=== PATIENT | male | born 1945 | race Caucasian/White ===

== ENCOUNTER 2018-11-21 16:11 | Inpatient (IN) | payer OTHER ==
[~2018-11-21] VITALS: Ht 172.7 cm; Wt 61.5 kg
[~2018-11-21 16:11] MED LIST: AMOX1TAB10 PO; CLOT30CR24 TOP; DEXA4TAB PO; DIGO125T PO; LACT1CAP57 PO; LANT3I SC; LINA5TAB PO; ONDA4TAB13 PO; PANT40TA4 PO
--- NOTE | 2018-11-21 16:56 | ERD ---
ER Documentation Chief Complaint Chief Complaint BILATERAL LEG SWELLING; DIZZINESS -HISTORY OF DKA;GASTRIC CANCER ; ON CHEMO HPI 73-year-old male with a history of atrial fibrillation, diabetes mellitus, and stomach cancer on chemotherapy presenting with worsening leg swelling over the past few weeks, worse in the past 2 days. He had his chemotherapy administered yesterday. This was the first time in a month that he had chemo. He does endorse some generalized weakness and mild dizziness, but otherwise he states he feels well. He is just concerned about his leg swelling. He denies any pain associated with the leg swelling. He denies any shortness of breath, chest pain, vomiting, diarrhea, or change in urination. He denies a history of heart failure. ROS All systems reviewed and are negative except as per history of present illness. Medications Home Meds Active Scripts Lactobacillus Rhamnosus* (Culturelle*) 1 Each Cap.sprink, 1 CAP PO BID, #10 CAP Prov:JOEY CERVANTES . 11/07/18 Clotrimazole* (Clotrimazole* AF) 1% - 30 Gm Cream.gm., 1 APPLIC TOP BID, #1 TUB 1 Refill Prov:JOEY CERVANTES. 11/07/18 Linagliptin (TRADJENTA) 5 Mg Tablet, 5 MG PO DAILY, #30 TAB 1 Refill Prov:JOEY CERVANTES . 11/07/18 Pantoprazole* (Pantoprazole*) 40 Mg Tablet.dr, 40 MG PO DAILY@06, #30 TAB 1 Refill Prov:JOEY CERVANTES. 11/07/18 Digoxin* (Digitek*) 125 Mcg Tablet, 0.125 MG PO DAILY@13, #30 TAB Prov:JOEY CERVANTES. 11/07/18 Reported Medications Digoxin* (Digitek*) 125 Mcg Tablet, 0.125 MG PO DAILY, TAB 11/21/18 Insulin Glargine* (Lantus*) 100 Unit/Ml Soln, 10 UNIT SC QHS, #1 VIAL 11/21/18 Dexamethasone* (Dexamethasone*) 4 Mg Tablet, 8 MG PO BID PRN for DIRECTED, TAB TAKE 2TAB BID- DAY BEFORE CHEMO, THEN NEXT DAY,THEN DAY OFF. 10/30/18 Ondansetron Hcl* (Zofran*) 4 Mg Tab, 4 MG PO NEEDED PRN for NAUSEA AND OR VOMITING, TAB 10/30/18 Discontinued Scripts Amoxicillin/Potassium Clav (Amox-Clav 875-125 mg Tablet) 875-125 mg Tab, 1 TAB PO BID, #10 TAB Prov:JOEY CERVANTES. 11/07/18 Insulin Glargine* (Lantus*) 100 Unit/Ml Soln, 1 UNIT SC DAILY, #3 VIAL 1 Refill Prov:JOEY CERVANTES. 11/07/18 Allergies Allergies: Coded Allergies: No Known Allergy (Unverified , 11/21/18) PMhx/Soc History of Surgery: Yes (PORTACATH AND STENT IN ABDOMEN ) Anesthesia Reaction: No Hx Neurological Disorder: No Hx Respiratory Disorders: No Hx Cardiac Disorders: Yes (AFib) Hx Psychiatric Problems: Yes (DEPRESSION MORE CURRENTLY) Hx Miscellaneous Medical Probl: Yes (DM, Stomach CA) Hx Alcohol Use: No Hx Substance Use: No Hx Tobacco Use: No FmHx Family History: No coronary disease Physical Exam Vitals Vital Signs Date Temp Pulse Resp B/P (MAP) Pulse Ox O2 O2 Flow FiO2 Time Delivery Rate 11/21/18 74 19 151/99 100 18:17 (116) 11/21/18 97.2 73 19 170/88 100 16:13 (115) Physical Exam Const: No acute distress Head: Atraumatic Eyes: Normal Conjunctiva ENT: Normal External Ears, Nose and Mouth. Dry mucous membranes Neck: Full range of motion. No meningismus.no JVD Resp: Clear to auscultation bilaterally Cardio: Regular rate and rhythm, no murmurs Abd: Soft, non tender, non distended. No palpable masses. Normal bowel sounds Skin: No petechiae or rashes Back: No midline or flank tenderness Ext: No cyanosis, 2+ pitting edema Neur: Awake and alert, normal speech, no facial asymmetry, Normal steady gait. Strength grossly intact. Psych: Normal Mood and Affect Result Diagram: 11/21/18 1706 11/21/18 170 Results 24 hrs Laboratory Tests Test 11/21/18 17:05 11/21/18 17:06 11/21/18 18:35 Bedside Glucose 369 mg/dL 343 mg/dL White Blood Count 7.0 10^3/ul Red Blood Count 3.29 10^6/ul Hemoglobin 8.7 g/dl Hematocrit 27.5 % Mean Corpuscular Volume 83.6 fl Mean Corpuscular Hemoglobin 26.4 pg Mean Corpuscular 31.6 g/dl Hemoglobin Concent Red Cell Distribution Width % Platelet Count 241 10^3/UL Mean Platelet Volume 9.5 fl Immature Granulocytes % 0.400 % Neutrophils % % Segmented Neutrophils % (Manual) 92 % Band Neutrophils % (Manual) 1 % Lymphocytes % % Lymphocytes % (Manual) 7 % Monocytes % % Eosinophils % % Basophils % % Nucleated Red Blood Cells % 0.0 /100WBC Immature Granulocytes # 0.030 10^3/ul Neutrophils # 10^3/ul Neutrophils # (Manual) 6.4 10^3/ul Band Neutrophils # 0.0 10^3/ul Lymphocytes (Manual) 0.4 10^3/ul Lymphocytes # 10^3/ul Monocytes # 10^3/ul Eosinophils # 10^3/ul Basophils # 10^3/ul Nucleated Red Blood Cells # 10^3/ul Platelet Estimate NORMAL Giant Platelets 1 % Polychromasia 1+ Hypochromasia 1+ Anisocytosis 2+ Microcytosis 2+ Urine Color STRAW Urine Clarity CLEAR Urine pH 6.0 Urine Specific [place] 1.016 Urine Ketones NEGATIVE mg/dL Urine Nitrite NEGATIVE mg/dL Urine Bilirubin NEGATIVE mg/dL Urine Urobilinogen NEGATIVE mg/dL Urine Leukocyte Esterase NEGATIVE Dulce/ul Urine Microscopic RBC 1 /HPF Urine Microscopic WBC 0 /HPF Urine Hemoglobin NEGATIVE mg/dL Urine Glucose 3+ mg/dL Urine Total Protein 1+ mg/dl Sodium Level 132 mmol/L Potassium Level 4.5 mmol/L Chloride Level 100 mmol/L Carbon Dioxide Level 23 mmol/L Anion Gap 9 Blood Urea Nitrogen 25 mg/dl Creatinine 0.64 mg/dl Est Glomerular Filtrat mL/min Rate mL/min Glucose Level 330 mg/dl Calcium Level 8.7 mg/dl Total Bilirubin 0.2 mg/dl Direct Bilirubin 0.00 mg/dl Indirect Bilirubin 0.2 mg/dl Aspartate Amino Transf (AST/SGOT) 32 IU/L Alanine 47 IU/L Aminotransferase (ALT/SGPT) Alkaline Phosphatase 178 IU/L B-Type Natriuretic Peptide 2630 PG/ML Total Protein 6.1 g/dl Albumin 3.4 g/dl Globulin 2.70 g/dl Albumin/Globulin Ratio 1.25 Current Medications Medications Dose Sig/Carlee Start Time Status Last (Trade) Ordered Route PRN Stop Time Admin Dose Reason Admin Insulin 8 unit ONCE ONCE 11/21/18 DC Aspart SC 17:30 (Novolog 11/21/18 17:30 Insulin Pen) Insulin 5 unit ONCE ONCE 11/21/18 DC 11/21/18 Aspart SC 18:30 18:38 (Novolog 11/21/18 18:31 Insulin Pen) Ondansetron 4 mg BRIDGE ORDER 11/21/18 HCl (Zofran PRN IV 18:30 Inj) NAUSEA/VOMITI 11/22/18 18:29 NG 650 mg ER BRIDGE 11/21/18 Acetaminophen PRN PO 18:30 (Tylenol .MILD PAIN 11/22/18 18:29 Tab) 1-3 OR TEMP Procedures/MDM EMERGENT LABS AND DIAGNOSTIC STUDIES: Lab Results above were reviewed and interpreted by me. CBC: Chronic anemia. No evidence of infection, leukopenia, thrombocytopenia CMP: Elevated BUN. No evidence of significant electrolyte abnormality, renal failure, acidosis, liver failure, or biliary obstruction. mild hyponatremia, likely secondary to hyperglycemia. BNP: elevated UA: no evidence of infection. New onset proteinuria 12-lead EKG was interpreted by Supa Kaplan MD: Sinus Rhythm with first-degree AV block at 69 bpm Normal axis Normal intervals No acute ST or T wave changes suggestive of acute ischemia or STEMI. Radiology Results as interpreted by Radiology below were reviewed by SDaniel Kaplan MD: CXR: no acute abnormalities Initial Nursing notes reviewed. Previous Medical Records requested via the Electronic Health Record. EMERGENCY DEPARTMENT COURSE / MEDICAL DECISION MAKING: Patient is presenting with worsening peripheral edema with new onset proteinuria. His blood albumin is however normal. He was noted to be hypertensive and remained hypertensive while here. He did not require any treatment in the ED as I do not suspect hypertensive emergency. Patient does not have outpatient nephrology follow-up. I have a concern for possible nephrotic syndrome and feel the patient needs admission for evaluation by roll examiner and further workup of possible nephrotic syndrome. Lasix ordered and administered in ED. Accepting Care Team: Current data and ongoing care discussed. Time: Time of admission Primary Provider: Dr. Olson Outstanding Data: none Departure Diagnosis: Primary Impression: Hypertension Hypertension type: unspecified Qualified Codes: I10 - Essential (primary) hypertension Additional Impressions: Peripheral edema Proteinuria Proteinuria type: unspecified Qualified Codes: R80.9 - Proteinuria, unspecified Condition: Fair ANGIE KAPLAN MD Nov 21, 2018 16:56
[2018-11-21] MEDS ORDERED: INSULIN ASPART [NOVOLOG] 3 ML PEN SC ONE ×2 (17:30→18:30)
[2018-11-21] MEDS ORDERED: ONDANSETRON 4 MG INJ IV PRN (18:30)
[2018-11-21] MEDS ORDERED: ACETAMINOPHEN 325 MG TAB PO PRN ×2 (18:30→20:30)
[2018-11-21] MEDS ORDERED: DIGO125T PO (18:31)
[2018-11-21] MEDS ORDERED: LANT3I SC (18:31)
[2018-11-21] MEDS ORDERED: FUROSEMIDE 40 MG INJ IV ONE (19:00)
[2018-11-21] MEDS ORDERED: NACL 0.9% 3 ML SYG IV SCH (20:30)
[2018-11-21] MEDS ORDERED: morphine 2 MG INJ IV PRN (20:30)
[2018-11-21] MEDS ORDERED: HYDROCODONE/APAP (5/325) TAB PO PRN (20:30)
--- NOTE | 2018-11-21 20:54 | HP ---
Date/Time of Note Date/Time of Note DATE: 11/21/18 TIME: 20:54 Assessment/Plan VTE Prophylaxis Pharmacological prophylaxis: other Lines/Catheters IV Catheter Type (from Nrsg): portacath Assessment/Plan Hospital Course Objective Physical exam General: Patient is laying in bed and answers questions appropriately Mentation: Patient is alert and oriented 4, Head: Normocephalic atraumatic Eyes: EOMI, pupils reactive to light Neck: Supple, nontender, midline Respiratory: Clear to auscultation bilaterally Cardiovascular: regular rate, no obvious murmurs Gastrointestinal: non-tender to palpation, bowel sounds heard. Neurological: Moves all extremities spontaneously Skin: 2+ pitting edema in lower extremity bilaterally Assessment and plan Bilateral lower extremity edema -lasix IV x1 give in ED, will defer to dayteam physician to reassess in the AM for additional need for lasix -UA does show some protein, questionable proteinuria, however labs show normal amounts of protein in his blood, consulted Dr. Rosen, nephrology for possible involvement -Ultrasound lower extremity pending -Echocardiogram done approximately 3 weeks ago shows preserved ejection fraction, will hold off on repeat echocardiogram for now as I do not suspect any change -Possible that this is a side effect of chemotherapy A. fib -Continue digoxin Diabetes mellitus -Hyperglycemic, insulin control while in-house, hold off on p.o. medications as this may be a side effect Gastric carcinoma on chemotherapy -Last dose of chemotherapy was yesterday, patient is on scheduled dexamethasone the day before and day after chemotherapy, will give his night dose today, pat ient does not need to be continued on dexamethasone after today according to the patient. Disposition -Observe in house and effects of Lasix, workup pending for lower extremity edema Result Diagram: 11/21/18 1706 11/21/18 1706 Results 24hrs Laboratory Tests Test 11/21/18 17:05 11/21/18 17:06 11/21/18 18:35 11/21/18 20:32 Bedside Glucose 369 H 343 H 289 H White Blood Count 7.0 # Red Blood Count 3.29 L Hemoglobin 8.7 L Hematocrit 27.5 L Mean Corpuscular 83.6 Volume Mean Corpuscular 26.4 L Hemoglobin Mean Corpuscular 31.6 L Hemoglobin Concent Red Cell Distribution Width Platelet Count 241 Mean Platelet Volume 9.5 Immature 0.400 Granulocytes % Neutrophils % Segmented 92 H Neutrophils % (Manual) Band Neutrophils % 1 (Manual) Lymphocytes % Lymphocytes % 7 L (Manual) Monocytes % Eosinophils % Basophils % Nucleated Red Blood 0.0 Cells % Immature 0.030 Granulocytes # Neutrophils # Neutrophils # 6.4 (Manual) Band Neutrophils # 0.0 Lymphocytes (Manual) 0.4 L Lymphocytes # Monocytes # Eosinophils # Basophils # Nucleated Red Blood Cells # Platelet Estimate NORMAL Giant Platelets 1 H Polychromasia 1+ Hypochromasia 1+ Anisocytosis 2+ Microcytosis 2+ Urine Color STRAW Urine Clarity CLEAR Urine pH 6.0 Urine Specific 1.016 [place] Urine Ketones NEGATIVE Urine Nitrite NEGATIVE Urine Bilirubin NEGATIVE Urine Urobilinogen NEGATIVE Urine Leukocyte NEGATIVE Esterase Urine Microscopic 1 RBC Urine Microscopic 0 WBC Urine Hemoglobin NEGATIVE Urine Glucose 3+ H Urine Total Protein 1+ H Sodium Level 132 L Potassium Level 4.5 Chloride Level 100 Carbon Dioxide Level 23 Anion Gap 9 Blood Urea Nitrogen 25 H Creatinine 0.64 Est Glomerular Filtrat Rate mL/min Glucose Level 330 H Calcium Level 8.7 Total Bilirubin 0.2 Direct Bilirubin 0.00 Indirect Bilirubin 0.2 Aspartate Amino 32 Transf (AST/SGOT) Alanine 47 Aminotransferase (AL T/SGPT) Alkaline Phosphatase 178 H B-Type Natriuretic 2630 H Peptide Total Protein 6.1 Albumin 3.4 Globulin 2.70 Albumin/Globulin 1.25 Ratio HPI/ROS Admit Date/Time Admit Date/Time Hx of Present Illness Patient is a male with a past medical history of atrial fibrillation, diabetes mellitus, gastric carcinoma on chemotherapy who presents to [facility] for 2-day onset of lower extremity swelling. Patient feels well otherwise however is just concerned at this sudden onset swelling in his lower extremity which is caused him some issues with ambulation. Patient states that this has happened before on and off but not to this degree. Patient just received chemotherapy yesterday and is following up with his doctors on a regular basis. Patient denies any chest pain, shortness of breath, nausea, vomiting, headache. PMH/Family/Social Past Medical History Medications Current Medications Ondansetron HCl (Zofran Inj) 4 mg BRIDGE ORDER PRN IV NAUSEA/VOMITING; Start 11/21/18 at 18:30; Stop 11/22/18 at 18:29 Acetaminophen (Tylenol Tab) 650 mg ER BRIDGE PRN PO .MILD PAIN 1-3 OR TEMP; Start 11/21/18 at 18:30; Stop 11/22/18 at 18:29 Coded Allergies: No Known Allergy (Unverified , 11/21/18) Past Surgical History Past Surgical Hx: other Family History Significant Family History: heart disease Social History Smoking Status: Never smoker Exam/Review of Systems Vital Signs Vitals Vital Signs Date Temp Pulse Resp B/P (MAP) Pulse Ox O2 O2 Flow FiO2 Time Delivery Rate 11/21/18 74 19 151/99 100 18:17 (116) 11/21/18 97.2 16:13 KAUSHIK DAWKINS Nov 21, 2018 20:54
[2018-11-21] MEDS ORDERED: DEXAMETHASONE 4 MG TAB PO ONE (21:00)
[2018-11-21] MEDS ORDERED: INSULIN GLARGINE [LANTus] (100 UNITS/ML) SYG SC SCH (21:00)
[2018-11-21] MEDS: PANTOPRAZOLE (EC) 40 MG TAB PO SCH (21:14)
[2018-11-21] MEDS: INSULIN ASPART [NOVOLOG] 3 ML PEN SC SCH (21:31)
[2018-11-21 22:25] VITALS: BP 128/92; PULSE 73; RESP 18
[2018-11-21 23:41] VITALS: Ht 172.7 cm; Wt 61.5 kg
[2018-11-22] MEDS: ACCU-CHEK XX SCH (02:00)
[2018-11-22 02:15] VITALS: BP 110/66; PULSE 95; RESP 18
[2018-11-22] MEDS: INSULIN ASPART [NOVOLOG] 3 ML PEN SC SCH ×7 (02:20→21:58)
[2018-11-22 07:52] VITALS: BP 139/81; PULSE 99; RESP 18
[2018-11-22] MEDS: PANTOPRAZOLE (EC) 40 MG TAB PO SCH ×2 (08:46→21:40)
[2018-11-22] MEDS: DIGOXIN 0.125 MG TAB PO SCH (09:22)
--- NOTE | 2018-11-22 11:02 | CONS ---
DATE OF ADMISSION: 11/21/2018 DATE OF CONSULTATION: 11/22/2018 TYPE OF CONSULTATION: Nephrology. REASON FOR CONSULTATION: Proteinuria, lower extremity edema. PHYSICIAN REQUESTING CONSULT: Dr. Harish Dawkins. HISTORY OF PRESENT ILLNESS: This is a 73-year-old male with a past medical history of afib, diabetes , history of gastric carcinoma on chemotherapy, who presents to [facility] for 2 da ys with lower extremity swelling. The patient has been in his usual state of health until [facility] 2 to 3 days ago when he noted having increasing in lower extremity edema. The patient has been r eceiving chemotherapy most recently 1 day prior to admission. The patient has been on chemotherapy f or 1 month. Upon arrival to the emergency room, the patient had a chest x-ray which showed no eviden ce of infiltrates or failure. The patient had a Doppler lower extremity ultrasound which was negativ e. The patient was admitted to telemetry and was given diuretic therapy and has had excellent urinar y output. The patient himself denies any hemoptysis, hematemesis or hematochezia. In terms of renal history, the patient denies any prior history of kidney disease, acute kidney injur y. Denies any frothy urine. PAST MEDICAL HISTORY: History of gastric carcinoma, history of diabetes, history of atrial fibrillat ion. PAST SURGICAL HISTORY: Status post Port-A-Cath placement and stent placement of stomach. FAMILY HISTORY: No family history of kidney disease. SOCIAL HISTORY: Does not drink, smoke, do drugs. MEDICATIONS: The patient's medications have been reviewed. REVIEW OF SYSTEMS: A 14-point review of systems conducted. Pertinent positives stated in HPI, other beltrán negative. PHYSICAL EXAMINATION: VITAL SIGNS: Blood pressure is 110/66, respiration 18, pulse 95, temperature 99.0. HEENT: Head is normocephalic. NECK: Supple. HEART: Regular rate. LUNGS: Show diminished breath sounds at the base. ABDOMEN: Soft, nontender to palpation. No rebound or guarding. EXTREMITIES: Negative for clubbing, cyanosis. Positive edema bilateral lower extremities. DERMATOLOGIC: No rashes. MUSCULOSKELETAL: No joint effusion. NEUROLOGIC: No focal deficits. LABORATORY DATA: The patient's laboratory data shows sodium 137, potassium 4.0, BUN 25, creatinine 0 .66. Hemoglobin A1c pending glucose 230. White count 7.4, hemoglobin 8.7, platelet count 240. The patient's urinalysis shows +1 proteinuria. IMAGING STUDIES: Reviewed. ASSESSMENT AND PLAN: This is a 73-year-old male who presents with: 1. Volume overload with bilateral lower extremity edema. Etiology is unclear, possibly heart failur e, possible nephrotic syndrome. The patient's urinalysis does show +1 proteinuria. The patient has new onset edema. Would recommend a full evaluation. Plan is to quantify the patient's proteinuria b y checking a protein/creatinine ratio and albumin/creatinine ratio. We will also check a renal ultra sound to evaluate renal parenchyma. Would recommend 2D echo to evaluate ejection fraction. Would co ntinue low dose diuretic therapy. We will monitor renal function and electrolytes closely. 2. Proteinuria. Etiology may be secondary to new onset nephrotic syndrome versus diabetes. Plan is to quantify proteinuria stated above. Will continue to monitor. We will also check a SPEP immunofi xation. 3. Atrial fibrillation. Continue medical management. 4. Diabetes. Continue current insulin regimen. Check hemoglobin A1c. 5. Gastric carcinoma on chemotherapy. Continue current medical management. Consider oncology evalu ation. The patient's last chemotherapy was 1 day prior to admission. 6. Anemia. Monitor hemoglobin and hematocrit levels. 7. Hyponatremia, resolved. Thank you, Dr. Dawkins, for this interesting consult. It will be a pleasure to follow patient with you t myaout the hospital course. Dictated By: ARIANNE HOROWITZ DO NR/NTS Conf#: [id number] DID#: [id number] CC: HARISH DAWKINS MD;*EndCC*
--- NOTE | 2018-11-22 12:46 | PN ---
Date/Time of Note Date/Time of Note DATE: 11/22/18 TIME: 12:43 Assessment/Plan VTE Prophylaxis Risk score (from Ns)>0 risk: 6 SCD applied (from Ns): Yes Pharmacological prophylaxis: heparin Lines/Catheters IV Catheter Type (from Nrs): portacath Urinary Cath still in place: No Assessment/Plan Hospital Course 73 yo male with DMII (h/o DKA), gastric cancer, A Fib who present with b/l LE edema - Unclear etiology of edema. labs for nephrotic syndrome have been sent. Reasonable to check TTE given mild JVD to assess for chemo induced cardiac dysfunction - continue lasix - duplex US is negative DMII: - basal/bolus insulin Gastric cancer: - Further treatment as outpatinet Can be discharged home tomorrow Result Diagram: 11/22/188 11/22/18 0448 Results 24hrs Laboratory Tests Test 11/21/18 17:05 11/21/18 17:06 11/21/18 18:35 11/21/18 20:32 Bedside Glucose 369 H 343 H 289 H White Blood Count 7.0 # Red Blood Count 3.29 L Hemoglobin 8.7 L Hematocrit 27.5 L Mean Corpuscular 83.6 Volume Mean Corpuscular 26.4 L Hemoglobin Mean Corpuscular 31.6 L Hemoglobin Concent Red Cell Distribution Width Platelet Count 241 Mean Platelet Volume 9.5 Immature 0.400 Granulocytes % Neutrophils % Segmented 92 H Neutrophils % (Manual) Band Neutrophils % 1 (Manual) Lymphocytes % Lymphocytes % 7 L (Manual) Monocytes % Eosinophils % Basophils % Nucleated Red Blood 0.0 Cells % Immature 0.030 Granulocytes # Neutrophils # Neutrophils # 6.4 (Manual) Band Neutrophils # 0.0 Lymphocytes (Manual) 0.4 L Lymphocytes # Monocytes # Eosinophils # Basophils # Nucleated Red Blood Cells # Platelet Estimate NORMAL Giant Platelets 1 H Polychromasia 1+ Hypochromasia 1+ Anisocytosis 2+ Microcytosis 2+ Urine Color STRAW Urine Clarity CLEAR Urine pH 6.0 Urine Specific 1.016 [place] Urine Ketones NEGATIVE Urine Nitrite NEGATIVE Urine Bilirubin NEGATIVE Urine Urobilinogen NEGATIVE Urine Leukocyte NEGATIVE Esterase Urine Microscopic 1 RBC Urine Microscopic 0 WBC Urine Hemoglobin NEGATIVE Urine Glucose 3+ H Urine Total Protein 1+ H Sodium Level 132 L Potassium Level 4.5 Chloride Level 100 Carbon Dioxide Level 23 Anion Gap 9 Blood Urea Nitrogen 25 H Creatinine 0.64 Est Glomerular Filtrat Rate mL/min Glucose Level 330 H Calcium Level 8.7 Total Bilirubin 0.2 Direct Bilirubin 0.00 Indirect Bilirubin 0.2 Aspartate Amino 32 Transf (AST/SGOT) Alanine 47 Aminotransferase (AL T/SGPT) Alkaline Phosphatase 178 H B-Type Natriuretic 2630 H Peptide Total Protein 6.1 Albumin 3.4 Globulin 2.70 Albumin/Globulin 1.25 Ratio Test 11/21/18 21:21 11/21/18 21:48 11/22/18 02:00 11/22/18 04:48 Bedside Glucose 255 H 275 H 303 H White Blood Count 7.4 Red Blood Count 3.30 L Hemoglobin 8.7 L Hematocrit 27.1 L Mean Corpuscular 82.1 Volume Mean Corpuscular 26.4 L Hemoglobin Mean Corpuscular 32.1 Hemoglobin Concent Red Cell Distribution Width Platelet Count 240 Mean Platelet Volume 9.9 Immature 0.800 H Granulocytes % Segmented 92 H Neutrophils % (Manual) Band Neutrophils % 1 (Manual) Lymphocytes % 6 L (Manual) Monocytes % (Manual) 1 Nucleated Red Blood 0.0 Cells % Immature 0.060 H Granulocytes # Neutrophils # 6.8 (Manual) Band Neutrophils # 0.0 Lymphocytes (Manual) 0.4 L Monocytes # (Manual) 0.0 L Platelet Estimate NORMAL Polychromasia 3+ Hypochromasia 3+ Poikilocytosis 1+ Anisocytosis 2+ Microcytosis 2+ Sodium Level 137 Potassium Level 4.0 Chloride Level 100 Carbon Dioxide Level 28 Anion Gap 9 Blood Urea Nitrogen 25 H Creatinine 0.66 Est Glomerular Filtrat Rate mL/min Glucose Level 230 #H Calcium Level 8.9 Magnesium Level 1.9 Total Bilirubin 0.2 Direct Bilirubin 0.00 Indirect Bilirubin 0.2 Aspartate Amino 30 Transf (AST/SGOT) Alanine 38 Aminotransferase (AL T/SGPT) Alkaline Phosphatase 145 H Total Protein 6.0 L Albumin 3.3 Globulin 2.70 Albumin/Globulin 1.22 Ratio Test 11/22/18 08:44 11/22/18 09:30 Bedside Glucose 238 H Urine Color STRAW Urine Clarity CLEAR Urine pH 7.0 Urine Specific 1.009 [place] Urine Ketones NEGATIVE Urine Nitrite NEGATIVE Urine Bilirubin NEGATIVE Urine Urobilinogen NEGATIVE Urine Leukocyte NEGATIVE Esterase Urine Hemoglobin NEGATIVE Urine Random 21.93 Creatinine Urine Random Sodium 151 H Urine Glucose 3+ H Urine Total Protein 49.0 H Subjective 24 Hr Interval Summary Free Text/Dictation Seems to have had good response to diuretics Feels well Exam/Review of Systems Exam Vitals Vital Signs Date Temp Pulse Resp B/P (MAP) Pulse Ox O2 O2 Flow FiO2 Time Delivery Rate 11/22/18 98.2 99 18 139/81 100 Room Air 07:52 (100) Intake and Output 11/21/18 11/21/18 11/22/18 1414:59 22:59 06:59 OutputOutput Total 1000 ml BalanceBalance -1000 ml Exam AOx3 Pleasant No distress RRR Mild JVD Clear lungs, breathing comfortably + peripheral edema Results Results 24hrs Laboratory Tests Test 11/21/18 17:05 11/21/18 17:06 11/21/18 18:35 11/21/18 20:32 Bedside Glucose 369 H 343 H 289 H White Blood Count 7.0 # Red Blood Count 3.29 L Hemoglobin 8.7 L Hematocrit 27.5 L Mean Corpuscular 83.6 Volume Mean Corpuscular 26.4 L Hemoglobin Mean Corpuscular 31.6 L Hemoglobin Concent Red Cell Distribution Width Platelet Count 241 Mean Platelet Volume 9.5 Immature 0.400 Granulocytes % Neutrophils % Segmented 92 H Neutrophils % (Manual) Band Neutrophils % 1 (Manual) Lymphocytes % Lymphocytes % 7 L (Manual) Monocytes % Eosinophils % Basophils % Nucleated Red Blood 0.0 Cells % Immature 0.030 Granulocytes # Neutrophils # Neutrophils # 6.4 (Manual) Band Neutrophils # 0.0 Lymphocytes (Manual) 0.4 L Lymphocytes # Monocytes # Eosinophils # Basophils # Nucleated Red Blood Cells # Platelet Estimate NORMAL Giant Platelets 1 H Polychromasia 1+ Hypochromasia 1+ Anisocytosis 2+ Microcytosis 2+ Urine Color STRAW Urine Clarity CLEAR Urine pH 6.0 Urine Specific 1.016 [place] Urine Ketones NEGATIVE Urine Nitrite NEGATIVE Urine Bilirubin NEGATIVE Urine Urobilinogen NEGATIVE Urine Leukocyte NEGATIVE Esterase Urine Microscopic 1 RBC Urine Microscopic 0 WBC Urine Hemoglobin NEGATIVE Urine Glucose 3+ H Urine Total Protein 1+ H Sodium Level 132 L Potassium Level 4.5 Chloride Level 100 Carbon Dioxide Level 23 Anion Gap 9 Blood Urea Nitrogen 25 H Creatinine 0.64 Est Glomerular Filtrat Rate mL/min Glucose Level 330 H Calcium Level 8.7 Total Bilirubin 0.2 Direct Bilirubin 0.00 Indirect Bilirubin 0.2 Aspartate Amino 32 Transf (AST/SGOT) Alanine 47 Aminotransferase (AL T/SGPT) Alkaline Phosphatase 178 H B-Type Natriuretic 2630 H Peptide Total Protein 6.1 Albumin 3.4 Globulin 2.70 Albumin/Globulin 1.25 Ratio Test 11/21/18 21:21 11/21/18 21:48 11/22/18 02:00 11/22/18 04:48 Bedside Glucose 255 H 275 H 303 H White Blood Count 7.4 Red Blood Count 3.30 L Hemoglobin 8.7 L Hematocrit 27.1 L Mean Corpuscular 82.1 Volume Mean Corpuscular 26.4 L Hemoglobin Mean Corpuscular 32.1 Hemoglobin Concent Red Cell Distribution Width Platelet Count 240 Mean Platelet Volume 9.9 Immature 0.800 H Granulocytes % Segmented 92 H Neutrophils % (Manual) Band Neutrophils % 1 (Manual) Lymphocytes % 6 L (Manual) Monocytes % (Manual) 1 Nucleated Red Blood 0.0 Cells % Immature 0.060 H Granulocytes # Neutrophils # 6.8 (Manual) Band Neutrophils # 0.0 Lymphocytes (Manual) 0.4 L Monocytes # (Manual) 0.0 L Platelet Estimate NORMAL Polychromasia 3+ Hypochromasia 3+ Poikilocytosis 1+ Anisocytosis 2+ Microcytosis 2+ Sodium Level 137 Potassium Level 4.0 Chloride Level 100 Carbon Dioxide Level 28 Anion Gap 9 Blood Urea Nitrogen 25 H Creatinine 0.66 Est Glomerular Filtrat Rate mL/min Glucose Level 230 #H Calcium Level 8.9 Magnesium Level 1.9 Total Bilirubin 0.2 Direct Bilirubin 0.00 Indirect Bilirubin 0.2 Aspartate Amino 30 Transf (AST/SGOT) Alanine 38 Aminotransferase (AL T/SGPT) Alkaline Phosphatase 145 H Total Protein 6.0 L Albumin 3.3 Globulin 2.70 Albumin/Globulin 1.22 Ratio Test 11/22/18 08:44 11/22/18 09:30 Bedside Glucose 238 H Urine Color STRAW Urine Clarity CLEAR Urine pH 7.0 Urine Specific 1.009 [place] Urine Ketones NEGATIVE Urine Nitrite NEGATIVE Urine Bilirubin NEGATIVE Urine Urobilinogen NEGATIVE Urine Leukocyte NEGATIVE Esterase Urine Hemoglobin NEGATIVE Urine Random 21.93 Creatinine Urine Random Sodium 151 H Urine Glucose 3+ H Urine Total Protein 49.0 H Medications Medication Current Medications IV Flush (NS 3 ml) 3 ml PER PROTOCOL IV ; Start 11/21/18 at 20:30 Ondansetron HCl (Zofran Inj) 4 mg Q6H PRN IV NAUSEA/VOMITING; Start 11/21/18 at 20:30 Acetaminophen (Tylenol Tab) 650 mg Q6H PRN PO .PAIN 1-3 OR TEMP; Start 11/21/18 at 20:30 Acetaminophen/ Hydrocodone Bitart ([place] (5/325)) 1 tab Q6H PRN PO .PAIN 4-6; Start 11/21/18 at 20:30 Morphine Sulfate (morphine) 2 mg Q4H PRN IV .PAIN 7-10; Start 11/21/18 at 20:30 Pantoprazole (Protonix Tab) 40 mg BID PO Last administered on 11/22/18 08:46; Admin Dose 40 MG; Start 11/21/18 at 21:00 Digoxin (Digoxin) 0.125 mg DAILY PO Last administered on 11/22/18 09:22; Admin Dose 0.125 MG; Start 11/22/18 at 09:00 Insulin Glargine (Lantus) 10 units QHS SC Last administered on 11/21/18 21:30; Admin Dose 10 UNITS; Start 11/21/18 at 21:00 Diagnostic Test (Pha) (Accu-Chek) 1 ea 02 XX ; Start 11/22/18 at 02:00 Insulin Aspart (Novolog Insulin Pen) NOVOLOG *MILD* ALGORITHM WITH MEALS BEDTIME SC Last administered on 11/22/18 09:24; Admin Dose 3 UNIT; Start 11/21/18 at 21:00 MAVIS MATOS MD Nov 22, 2018 12:46
[2018-11-22] MEDS ORDERED: DEXTROSE 50% 50 ML SYRINGE IV PRN ×2 (13:30)
[2018-11-22] MEDS ORDERED: GLUCAGON 1 MG INJ IM PRN (13:30)
[2018-11-22] MEDS ORDERED: GLUCOSE GEL 15 GRAM TUBE BUCCAL PRN (13:30)
[2018-11-22] MEDS ORDERED: GLUCOSE GEL 15 GRAM TUBE PO PRN ×2 (13:30)
[2018-11-22 15:23] VITALS: BP 131/81; PULSE 78; RESP 18
[2018-11-22] MEDS ORDERED: INSULIN ASPART [NOVOLOG] 3 ML PEN SC SCH ×2 (17:55)
[2018-11-22 19:15] VITALS: BP 121/74; PULSE 78; RESP 18
[2018-11-22] MEDS ORDERED: INSULIN GLARGINE [LANTus] (100 UNITS/ML) SYG SC SCH (21:00)
[2018-11-23 02:00] VITALS: BP 134/76; PULSE 84; RESP 18
[2018-11-23] MEDS: ACCU-CHEK XX SCH ×2 (02:00→20:54)
[2018-11-23] MEDS: INSULIN ASPART [NOVOLOG] 3 ML PEN SC SCH ×7 (07:50→20:53)
[2018-11-23] MEDS: PANTOPRAZOLE (EC) 40 MG TAB PO SCH ×2 (08:15→20:17)
[2018-11-23] MEDS: DIGOXIN 0.125 MG TAB PO SCH (08:17)
[2018-11-23 08:20] VITALS: BP 101/66; PULSE 67; RESP 18
[2018-11-23] MEDS ORDERED: LISINOPRIL 5 MG TAB PO SCH (09:00)
[2018-11-23] MEDS: ONDANSETRON 4 MG INJ IV PRN (11:07)
--- NOTE | 2018-11-23 14:06 | PN ---
Date/Time of Note Date/Time of Note DATE: 11/23/18 TIME: 14:05 Assessment/Plan VTE Prophylaxis Risk score (from [facility])>0 risk: 6 SCD applied (from [facility]): Yes Pharmacological prophylaxis: heparin Lines/Catheters IV C[facility]ter Type (from [facility] PORT-A-CATH Urinary Cath still in place: No Assessment/Plan Problems: (1) Peripheral edema Status: Acute Comment: As noted and relatively mild. (2) Proteinuria Status: Acute Comment: Again this is relatively mild but renal is working this up aggressively Qualifiers: Proteinuria type: unspecified Qualified Codes: R80.9 - Proteinuria, unspecified Result Diagram: 11/22/188 11/23/18442 Results 24hrs Laboratory Tests Test 11/22/18 17:37 11/22/18 21:38 11/23/18 02:38 11/23/18 04:43 Bedside Glucose 297 H 184 142 Sodium Level 136 Potassium Level 4.1 Chloride Level 98 Carbon Dioxide Level 30 Anion Gap 8 Blood Urea Nitrogen 24 H Creatinine 0.71 Est Glomerular Filtrat Rate mL/min Glucose Level 141 # Calcium Level 9.1 Phosphorus Level 3.4 Magnesium Level 2.0 Test 11/23/18 08:14 11/23/18 12:26 11/23/18 12:44 11/23/18 13:05 Bedside Glucose 106 68 L 66 L 76 Test 11/23/18 13:28 Bedside Glucose 67 L Subjective 24 Hr Interval Summary Free Text/Dictation Patient reports he was brought into the hospital for more chemotherapy although I think that that is not actually fully accurate. Has had some low sugars today Constitutional: no complaints Respiratory: no complaints Cardiovascular: edema Gastrointestinal: no complaints Exam/Review of Systems Exam Vitals Vital Signs Date Temp Pulse Resp B/P (MAP) Pulse Ox O2 O2 Flow FiO2 Time Delivery Rate 11/23/18 97.5 67 18 101/66 98 Room Air 08:20 (78) Intake and Output 11/22/18 11/22/18 11/23/18 1515:00 23:00 07:00 IntakeIntake Total 800 ml 400 ml 550 ml OutputOutput Total 600 ml 450 ml BalanceBalance 200 ml 400 ml 100 ml Constitutional: alert, oriented Respiratory: clear to auscultation, normal air movement Cardiovascular: regular rate and rhythm, nl pulses Gastrointestinal: soft, nl liver, spleen, non-tender Results Results 24hrs Laboratory Tests Test 11/22/18 17:37 11/22/18 21:38 11/23/18 02:38 11/23/18 04:43 Bedside Glucose 297 H 184 142 Sodium Level 136 Potassium Level 4.1 Chloride Level 98 Carbon Dioxide Level 30 Anion Gap 8 Blood Urea Nitrogen 24 H Creatinine 0.71 Est Glomerular Filtrat Rate mL/min Glucose Level 141 # Calcium Level 9.1 Phosphorus Level 3.4 Magnesium Level 2.0 Test 11/23/18 08:14 11/23/18 12:26 11/23/18 12:44 11/23/18 13:05 Bedside Glucose 106 68 L 66 L 76 Test 11/23/18 13:28 Bedside Glucose 67 L Medications Medication Current Medications IV Flush (NS 3 ml) 3 ml PER PROTOCOL IV ; Start 11/21/18 at 20:30 Ondansetron HCl (Zofran Inj) 4 mg Q6H PRN IV NAUSEA/VOMITING Last administered on 11/23/18at 11:07; Admin Dose 4 MG; Start 11/21/18 at 20:30 Acetaminophen (Tylenol Tab) 650 mg Q6H PRN PO .PAIN 1-3 OR TEMP; Start 11/21/18 at 20:30 Acetaminophen/ Hydrocodone Bitart ([place] (5/325)) 1 tab Q6H PRN PO .PAIN 4-6; Start 11/21/18 at 20:30 Morphine Sulfate (morphine) 2 mg Q4H PRN IV .PAIN 7-10; Start 11/21/18 at 20:30 Pantoprazole (Protonix Tab) 40 mg BID PO Last administered on 11/23/18at 08:15; Admin Dose 40 MG; Start 11/21/18 at 21:00 Digoxin (Digoxin) 0.125 mg DAILY PO Last administered on 11/23/18at 08:17; Admin Dose 0.125 MG; Start 11/22/18 at 09:00 Diagnostic Test (Pha) (Accu-Chek) 1 ea 02 XX ; Start 11/22/18 at 02:00 Insulin Aspart (Novolog Insulin Pen) NOVOLOG *MILD* ALGORITHM WITH MEALS BEDTIME SC Last administered on 11/22/18at 21:58; Admin Dose 1 UNIT; Start 11/21/18 at 21:00 Insulin Glargine (Lantus) 15 units QHS SC Last administered on 11/22/18at 21:58; Admin Dose 15 UNITS; Start 11/22/18 at 21:00 Miscellaneous Information 1 ea NOTE XX ; Start 11/22/18 at 13:30 Glucose (Glutose) 15 gm Q15M PRN PO DECREASED GLUCOSE; Start 11/22/18 at 13:30 Glucose (Glutose) 22.5 gm Q15M PRN PO DECREASED GLUCOSE; Start 11/22/18 at 13:30 Dextrose (D50w Syringe) 25 ml Q15M PRN IV DECREASED GLUCOSE; Start 11/22/18 at 13:30 Dextrose (D50w Syringe) 50 ml Q15M PRN IV DECREASED GLUCOSE; Start 11/22/18 at 13:30 Glucagon (Glucagen) 1 mg Q15M PRN IM DECREASED GLUCOSE; Start 11/22/18 at 13:30 Glucose (Glutose) 15 gm Q15M PRN BUCCAL DECREASED GLUCOSE Last administered on 11/23/18at 13:33; Admin Dose 15 GM; Start 11/22/18 at 13:30 Insulin Aspart (Novolog Insulin Pen) 3 unit WITH MEALS SC Last administered on 11/23/18at 12:45; Admin Dose 3 UNIT; Start 11/22/18 at 13:30 Lisinopril (Zestril) 5 mg DAILY PO ; Start 11/23/18 at 09:00 JOVAN SWANSON MD Nov 23, 2018 14:06
--- NOTE | 2018-11-23 14:48 | PN ---
DATE: 11/23/2018 SUBJECTIVE: The patient is stable. No events overnight. No fevers, chills, nausea, vomiting. OBJECTIVE: VITAL SIGNS: Blood pressure is 134/76, respiration 18, pulse 84, temperature 98.8. HEENT: Head is normocephalic. NECK: Supple. HEART: Regular rate. LUNGS: Show diminished breath sounds at the base. ABDOMEN: Soft, nontender to palpation. No rebound or guarding. EXTREMITIES: Negative for clubbing, cyanosis. Trace edema. DERMATOLOGIC: No rashes. MUSCULOSKELETAL: No joint effusion. NEUROLOGIC: No change in exam. MEDICATIONS: The patient's medications have been reviewed. LABORATORY DATA: Showed a sodium 136, BUN 24, creatinine 0.71. Urinalysis shows a protein creatinin e ratio approximately 2.3 grams per gram of creatinine. Microalbumin creatinine ratio is pending. W zara count was 7.4, hemoglobin 8.7, platelet count is 240. IMAGING: Renal ultrasound was reviewed. No obstruction. Enlarged prostate with noted. ASSESSMENT AND PLAN: 1. Proteinuria. Etiology is likely due to underlying diabetic nephropathy. Other possibilities suc h as a monoclonal gammopathy need to be evaluated. The patient has non-nephrotic range proteinuria o f approximately 2.3 g per gram of protein. No evidence of nephrotic syndrome as the patient has norm al albumin. Recommendation at this point, is to follow up SPEP, UPEP immunofixation. Would start th e patient on RUDDY inhibitor or ARB upon discharge, and will continue to monitor renal function closely . 2. Volume overload with bilateral lower extremity edema. Etiology is unclear. The patient does not have nephrotic syndrome based on initial protein creatinine ratio. Would do further evaluation by ashley francois a 2D echo to see if there is a component of cardiomyopathy. Continue low-dose diuretic thera py. Will monitor closely. 3. Atrial fibrillation. Continue medical management. 4. Diabetes. Continue current insulin regimen. 5. Gastric cancer, on chemotherapy. Continue current medical management. Follow up with oncology. 6. Anemia. Monitor hemoglobin and hematocrit levels. 7. Hypernatremia, resolved. Dictated By: ARIANNE ROSAS/NTS Conf#: [id number] DID#: [id number]
[2018-11-23 17:46] VITALS: BP 91/62; PULSE 81; RESP 18
[2018-11-23 19:05] VITALS: BP 106/59; PULSE 79; RESP 18
[2018-11-23] MEDS: INSULIN GLARGINE [LANTus] (100 UNITS/ML) SYG SC SCH (20:22)
[2018-11-24 02:05] VITALS: BP 87/58; PULSE 82; RESP 20
[2018-11-24] MEDS: INSULIN ASPART [NOVOLOG] 3 ML PEN SC SCH ×7 (07:50→21:00)
[2018-11-24] MEDS: DIGOXIN 0.125 MG TAB PO SCH (08:28)
[2018-11-24] MEDS: PANTOPRAZOLE (EC) 40 MG TAB PO SCH ×2 (08:28→20:30)
[2018-11-24] MEDS: LISINOPRIL 5 MG TAB PO SCH (08:29)
[2018-11-24 08:31] VITALS: BP 107/72; PULSE 90; RESP 20
--- NOTE | 2018-11-24 11:10 | PN ---
DATE: 11/24/2018 SUBJECTIVE: The patient is stable, no events overnight. No fevers, chills, nausea, vomiting. OBJECTIVE: VITAL SIGNS: Blood pressure is 87.58, respiratory rate 20, pulse 82, temperature 98.3. HEENT: Head is normocephalic. NECK: Supple. HEART: Regular rate. LUNGS: Show diminished breath sounds at the base. ABDOMEN: Soft, nontender to palpation without rebound or guarding. EXTREMITIES: Negative for clubbing, cyanosis. Trace edema. DERMATOLOGIC: No rashes. MUSCULOSKELETAL: No joint effusion. NEUROLOGIC: No change in exam. MEDICATIONS: Reviewed. LABORATORY DATA: Has been reviewed. BMP for this morning is currently pending. ASSESSMENT AND PLAN: 1. Proteinuria. Etiology likely due to diabetic nephropathy. Other possibilities such as monoclona l gammopathy being evaluated. The patient's SPEP, UPEP are currently pending. The patient was start ed on low dose RUDDY inhibitor. Will monitor blood pressure closely. We will place parameters on RUDDY inhibitor. We will follow up renal panel. Otherwise, continue current treatment plan, supportive ca re, renally dose all meds. 2. Volume overload secondary to bilateral lower extremity edema, etiology is unclear. Would consider checking a 2D echo. The patient is on low dose diuretic therapy, monitor closely. 3. Atrial fibrillation. Continue medical management. 4. Diabetes. Continue current insulin regimen. 5. Gastric cancer and chemotherapy. Continue current treatment plan. Follow up with oncology. 6. Anemia. Monitor hemoglobin and hematocrit levels. 7. Hypernatremia, resolved. Dictated By: ARIANNE HOROWITZ DO NR/NTS Conf#: [id number] DID#: [id number] CC: DAYANARA HAWTHORNE MD; KAUSHIK DAWKINS MD;*EndCC*
--- NOTE | 2018-11-24 11:22 | DS ---
Date/Time of Note Date/Time of Note DATE: 11/24/18 TIME: 11:17 Discharge Summary Admission/Discharge Info Admit Date/Time Nov 21, 2018 at 18:28 Discharge Date/Time November 24, 2018 Discharge Diagnosis Bilateral lower extremity edema; proteinuria; diabetes mellitus type 2; ventral hypertension; metastatic gastric carcinoma; nontoxic single thyroid nodule Patient Condition: Fair Consults Nephrology-Dr. Rosen Procedures No ultrasound; lower extremity venous Doppler study; Hx of Present Illness HPI 73-year-old male with a history of atrial fibrillation, diabetes mellitus, and stomach cancer on chemotherapy presenting with worsening leg swelling over the past few weeks, worse in the past 2 days. He had his chemotherapy administered yesterday. This was the first time in a month that he had chemo. He does endorse some generalized weakness and mild dizziness, but otherwise he states he feels well. He is just concerned about his leg swelling. He denies any pain associated with the leg swelling. He denies any shortness of breath, chest pain, vomiting, diarrhea, or change in urination. He denies a history of heart f Hx of Present Illness Patient is a male with a past medical history of atrial fibrillation, diabetes mellitus, gastric carcinoma on chemotherapy who presents to [facility] for 2-day onset of lower extremity swelling. Patient feels well otherwise however is just concerned at this sudden onset swelling in his lower extremity which is caused him some issues with ambulation. Patient states that this has happened before on and off but not to this degree. Patient just received chemotherapy yesterday and is following up with his doctors on a regular basis. Patient denies any chest pain, shortness of breath, nausea, vomiting, headache. Hospital Course Pleasant gentleman with known metastatic gastric cancer came in with bilateral lower extremity edema and some degree of proteinuria. While the electrophoresis is pending his total protein loss was not excessive and was not in the nephrotic range. He has improved with careful management and is stable for discharge. Home Meds Active Scripts Lactobacillus Rhamnosus* (Culturelle*) 1 Each Cap.sprink, 1 CAP PO BID, #10 CAP Prov:JOEY CERVANTES 11/07/18 Clotrimazole* (Clotrimazole* AF) 1% - 30 Gm Cream.gm., 1 APPLIC TOP BID, #1 TUB 1 Refill Prov:JOEY CERVANTES 11/07/18 Linagliptin (TRADJENTA) 5 Mg Tablet, 5 MG PO DAILY, #30 TAB 1 Refill Prov:JOEY CERVANTES. 11/07/18 Pantoprazole* (Pantoprazole*) 40 Mg Tablet.dr, 40 MG PO DAILY@06, #30 TAB 1 Refill Prov:JOEY CERVANTES. 11/07/18 Digoxin* (Digitek*) 125 Mcg Tablet, 0.125 MG PO DAILY@13, #30 TAB Prov:JOEY CERVANTES. 11/07/18 Reported Medications Digoxin* (Digitek*) 125 Mcg Tablet, 0.125 MG PO DAILY, TAB 11/21/18 Insulin Glargine* (Lantus*) 100 Unit/Ml Soln, 10 UNIT SC QHS, #1 VIAL 11/21/18 Dexamethasone* (Dexamethasone*) 4 Mg Tablet, 8 MG PO BID PRN for DIRECTED, TAB TAKE 2TAB BID- DAY BEFORE CHEMO, THEN NEXT DAY,THEN DAY OFF. 10/30/18 Ondansetron Hcl* (Zofran*) 4 Mg Tab, 4 MG PO NEEDED PRN for NAUSEA AND OR VOMITING, TAB 10/30/18 Discontinued Scripts Amoxicillin/Potassium Clav (Amox-Clav 875-125 mg Tablet) 875-125 mg Tab, 1 TAB PO BID, #10 TAB Prov:JOEY CERVANTES. 11/07/18 Insulin Glargine* (Lantus*) 100 Unit/Ml Soln, 1 UNIT SC DAILY, #3 VIAL 1 Refill Prov:JOEY CERVANTES. 11/07/18 Follow-up Plan Dr. Rosen in 2 weeks; primary care physician 2 weeks; Dr. Charis Russell in 2 weeks Primary Care Provider Not On Staff Doctor Time spent on discharge: > 30 minutes Pending Labs Laboratory Tests Test 11/23/18 12:26 11/23/18 12:44 11/23/18 13:05 11/23/18 13:28 Bedside 68 66 76 67 Glucose mg/dL (70-220) mg/dL (70-220) mg/dL (70-220) mg/dL (70-220) Test 11/23/18 13:51 11/23/18 14:14 11/23/18 14:38 11/23/18 14:55 Bedside 68 71 168 184 Glucose mg/dL (70-220) mg/dL (70-220) mg/dL (70-220) mg/dL (70-220) Test 11/23/18 17:53 11/23/18 20:12 11/24/18 07:52 11/24/18 08:11 Bedside 140 87 65 Glucose mg/dL (70-220) mg/dL (70-220) mg/dL (70-220) Sodium Level 135 mmol/L (135-14 4) Potassium 3.6 Level mmol/L (3.5-5. 1) Chloride Level 100 mmol/L (97-110 ) Carbon Dioxide 31 Level mmol/L (21-31) Anion Gap 4 (5-13) Blood Urea 23 Nitrogen mg/dl (7-20) Creatinine 0.63 mg/dl (0.61-1. 24) Est Glomerular mL/min (>60) Filtrat Rate mL/min Glucose Level 64 mg/dl (70-220) Calcium Level 8.5 mg/dl (8.4-10. 2) Test 11/24/18 08:30 11/24/18 08:55 Bedside 81 95 Glucose mg/dL (70-220) mg/dL (70-220) JOVAN SWANSON MD Nov 24, 2018 11:22
[2018-11-24] MEDS: ONDANSETRON 4 MG INJ IV PRN (12:40)
[2018-11-24] MEDS: INSULIN GLARGINE [LANTus] (100 UNITS/ML) SYG SC SCH (20:35)
[2018-11-24 20:39] VITALS: BP 104/55; PULSE 83; RESP 18
[2018-11-25] MEDS: ACCU-CHEK XX SCH (02:00)
[2018-11-25 02:51] VITALS: BP 100/57; PULSE 76; RESP 18
[2018-11-25 07:42] VITALS: BP 108/64; PULSE 85; RESP 17
[2018-11-25] MEDS: INSULIN ASPART [NOVOLOG] 3 ML PEN SC SCH ×4 (07:50→12:32)
--- NOTE | 2018-11-25 08:53 | PN ---
DATE: 11/25/2018 SUBJECTIVE: The patient is stable, no acute events noted overnight. No fevers, chills, nausea, or v omiting. No other events noted. OBJECTIVE: VITAL SIGNS: Blood pressure is 100/57, respirations 18, pulse 76, temperature 98.8. HEENT: Head is normocephalic. NECK: Supple. HEART: Regular rate. LUNGS: Show diminished breath sounds at the base. ABDOMEN: Soft, nontender to palpation. No rebound or guarding. EXTREMITIES: Negative for clubbing, cyanosis. Trace edema. DERMATOLOGIC: No rashes. MUSCULOSKELETAL: No joint effusion. NEUROLOGIC: No change in exam. MEDICATIONS: Reviewed. LABORATORY DATA: Reviewed. ASSESSMENT AND PLAN: 1. Proteinuria. Etiology is likely due to diabetic nephropathy. Other possibility such as a monocl onal gammopathy is being evaluated. SPEP, UPEP have been sent out. The patient is currently on low dose RUDDY inhibitor. We will continue to monitor and follow up renal panel. 2. Volume overload secondary to bilateral lower extremity edema improved with diuretic therapy. Kamala ology is unclear. Consider checking 2D echo and monitor closely. 3. Atrial fibrillation. Continue medical management. 4. Diabetes. Continue current insulin regimen. 5. Gastric cancer. The patient is on chemotherapy. We will continue. Follow up with oncology. 6. Anemia. Continue to monitor hemoglobin and hematocrit levels. 7. Hypernatremia, resolved. Dictated By: ARIANNE HOROWITZ DO NR/NTS Conf#: [id number] DID#: [id number] CC: KAUSHIK DAWKINS MD; DAYANARA HAWTHORNE MD;*EndCC*
[2018-11-25] MEDS: PANTOPRAZOLE (EC) 40 MG TAB PO SCH (08:57)
[2018-11-25] MEDS: DIGOXIN 0.125 MG TAB PO SCH (08:57)
[2018-11-25] MEDS: LISINOPRIL 5 MG TAB PO SCH (09:00)
[2018-11-25] MEDS ORDERED: FURO20TA3 PO (11:31)
--- NOTE | 2018-11-25 11:33 | PDOCDIS ---
Discharge Instructions DIAGNOSIS Discharge Diagnosis Bilateral lower extremity edema; proteinuria; diabetes mellitus type 2; ventral hypertension; metastatic gastric carcinoma; nontoxic single thyroid nodule CONDITION [id number] Patient Condition: [id number] Stable HOME CARE INSTRUCTIONS: [id number] Diet Instructions: [id number] Reduced Calorie ACTIVITY: [id number] Activity Restrictions: [id number] Slowly Increase Activity Rest between Activity Avoid heavy lifting FOLLOW UP/APPOINTMENTS Follow-up Plan Dr. Rosen in 2 weeks. His office number is primary care physician 2 weeks; Dr. Charis Russell in 2 weeks MAVIS MATOS MD Nov 25, 2018 11:33
--- NOTE | 2018-11-25 11:34 | DS ---
Date/Time of Note Date/Time of Note DATE: 11/25/18 TIME: 11:33 Discharge Summary Admission/Discharge Info Admit Date/Time Nov 21, 2018 at 18:28 Discharge Date/Time Discharge Diagnosis Bilateral lower extremity edema; proteinuria; diabetes mellitus type 2; ventral hypertension; metastatic gastric carcinoma; nontoxic single thyroid nodule Patient Condition: Stable Hospital Course 73 yo male with DMII (h/o DKA), gastric cancer, A Fib who present with b/l LE edema. Labs were sent showing mild proteinuria. SPEP is pending at discharge. He was given lasix and edema promptly resolved. He will follow up in clinic with Dr Rosen for further management and workup Home Meds Active Scripts Lactobacillus Rhamnosus* (Culturelle*) 1 Each Cap.sprink, 1 CAP PO BID, #10 CAP Prov:JOEY CERVANTES. 11/07/18 Clotrimazole* (Clotrimazole* AF) 1% - 30 Gm Cream.gm., 1 APPLIC TOP BID, #1 TUB 1 Refill Prov:JOEY CERVANTES. 11/07/18 Linagliptin (TRADJENTA) 5 Mg Tablet, 5 MG PO DAILY, #30 TAB 1 Refill Prov:JOEY CERVANTES . 11/07/18 Pantoprazole* (Pantoprazole*) 40 Mg Tablet., 40 MG PO DAILY@06, #30 TAB 1 Refill Prov:JOEY CERVANTES. 11/07/18 Digoxin* (Digitek*) 125 Mcg Tablet, 0.125 MG PO DAILY@13, #30 TAB Prov:JOEY CERVANTES. 11/07/18 Reported Medications Digoxin* (Digitek*) 125 Mcg Tablet, 0.125 MG PO DAILY, TAB 11/21/18 Insulin Glargine* (Lantus*) 100 Unit/Ml Soln, 10 UNIT SC QHS, #1 VIAL 11/21/18 Dexamethasone* (Dexamethasone*) 4 Mg Tablet, 8 MG PO BID PRN for DIRECTED, TAB TAKE 2TAB BID- DAY BEFORE CHEMO, THEN NEXT DAY,THEN DAY OFF. 10/30/18 Ondansetron Hcl* (Zofran*) 4 Mg Tab, 4 MG PO NEEDED PRN for NAUSEA AND OR VOMITING, TAB 10/30/18 Discontinued Scripts Amoxicillin/Potassium Clav (Amox-Clav 875-125 mg Tablet) 875-125 mg Tab, 1 TAB PO BID, #10 TAB Prov:JOEY CERVANTES. 11/07/18 Insulin Glargine* (Lantus*) 100 Unit/Ml Soln, 1 UNIT SC DAILY, #3 VIAL 1 Refill Prov:JOEY CERVANTES 11/07/18 Follow-up Plan Dr. Rosen in 2 weeks. His office number is primary care physician 2 weeks; Dr. Charis Russell in 2 weeks Primary Care Provider Not On Staff Doctor Pending Labs Laboratory Tests Test 11/24/18 12:42 11/24/18 17:33 11/24/18 20:32 11/25/18 08:52 Bedside 196 72 98 61 Glucose mg/dL (70-220) mg/dL (70-220) mg/dL (70-220) mg/dL (70-220) Test 11/25/18 09:09 11/25/18 09:27 Bedside 75 95 Glucose mg/dL (70-220) mg/dL (70-220) MAVIS MATOS MD Nov 25, 2018 11:34
[2018-11-25 14:00] VITALS: BP 89/55; PULSE 98; RESP 18
[2018-11-25] MEDS ORDERED: HEPARIN (100 UNITS/ML) 5 ML SYG CATHETER ONE (14:00)
--- NOTE | 2018-11-25 14:10 | CONS ---
Assessment/Plan Assessment/Plan Assessment/Plan (Daily) #STAGE 1 Gastric Cancer -on EUS this was noted to be a clincal T2N0 Gastric Ca, poorly differentiated adenocarcinoma - PET CT negative for metastatic disease -cycle 4 of FLOT to start as an out patient #LE Edema -diuresis per nephrology -pt feels much better and is ready for discharge # Neutropenia -Continue with the growth factor (Zarxio) injections post chemo # Iron-deficiency anemia -will start with IV Venofer per protocol #Nausea -IV hydration given with IV zofran #afib -may continue on xarelto -continue management per cardiology -10/30 ECHO revealed ER 65% #HTN -continue current management #DM -continue current management. recently admitted for DKA. Hb A1C> 11 -pt now on insulin #Hyperlipidemia -continue current management Consultation Date/Type/Reason Admit Date/Time 11/21/18 Date of Consultation: Nov 25, 2018 Type of Consult hematology Reason for Consultation gastric cancer Requesting Provider: KAUSHIK DAWKINS Date/Time of Note DATE: 11/25/18 TIME: 14:07 Hx of Present Illness 73 yo male with h/o afib, and a recent diagnosis of gastic cancer. His history is as follows: 07/2018 - pt presetned to [facility] with melanotic stools and HG 6.7. 07/23/18 EGD was done which revealed a malignant mass at the pyloris. Bx was done which confirmed moderaly to poorly differentiated adenocarcinoma 07/24/18 CT A/P was done which revealed no evidence of metastatic disease 07/26/18 : Pt had EUS done, which revealed a T2 lesion without obvious surroundign lymphadenopathy. Malignant appearing mass was noted at the pyloris and a 22mm x 6cm stent was placed across the stenosis. 08/15/18: PETCT reveals no evidence of metastatic disease Pt now presents for treatment options. PT currently is eating well although he has lost > 20 lbs in the last few months. 10/14/18: Patient here today for growth factor injection. Neurophil count is 0.3 10/30/18 pt admitted for DKA and afib. after 2nd cycle of FLOT. was placed on insulin 11/20/17 given cycle 3 fLOT Currently 11/21/18 admitted for LE edema, which has since improved Constitutional: poor po Eyes: no complaints ENT: no complaints Respiratory: no complaints Cardiovascular: no complaints Gastrointestinal: no complaints Genitourinary: no complaints Musculoskeletal: bone/joint pain Skin: no complaints Lymphatic: no complaints Past Medical History afib - on xarelto HTN DM HL Aortic Caclicfication Home Meds Active Scripts Furosemide* (Furosemide*) 20 Mg Tablet, 20 MG PO DAILY PRN for swelling, #20 TAB Prov:MAVIS MATOS MD 11/25/18 Lactobacillus Rhamnosus* (Culturelle*) 1 Each Cap.sprink, 1 CAP PO BID, #10 CAP Prov:JOEY CERVANTES. 11/07/18 Clotrimazole* (Clotrimazole* AF) 1% - 30 Gm Cream.gm., 1 APPLIC TOP BID, #1 TUB 1 Refill Prov:JOEY CERVANTES . 11/07/18 Linagliptin (TRADJENTA) 5 Mg Tablet, 5 MG PO DAILY, #30 TAB 1 Refill Prov:JOEY CERVANTES . 11/07/18 Pantoprazole* (Pantoprazole*) 40 Mg Tablet.dr, 40 MG PO DAILY@06, #30 TAB 1 Refill Prov:JOEY CERVANTES. 11/07/18 Digoxin* (Digitek*) 125 Mcg Tablet, 0.125 MG PO DAILY@13, #30 TAB Prov:JOEY CERVANTES. 11/07/18 Reported Medications Insulin Glargine* (Lantus*) 100 Unit/Ml Soln, 10 UNIT SC QHS, #1 VIAL 11/21/18 Dexamethasone* (Dexamethasone*) 4 Mg Tablet, 8 MG PO BID PRN for DIRECTED, TAB TAKE 2TAB BID- DAY BEFORE CHEMO, THEN NEXT DAY,THEN DAY OFF. 10/30/18 Ondansetron Hcl* (Zofran*) 4 Mg Tab, 4 MG PO NEEDED PRN for NAUSEA AND OR VOMITING, TAB 10/30/18 Discontinued Reported Medications Digoxin* (Digitek*) 125 Mcg Tablet, 0.125 MG PO DAILY, TAB 11/21/18 Discontinued Scripts Amoxicillin/Potassium Clav (Amox-Clav 875-125 mg Tablet) 875-125 mg Tab, 1 TAB PO BID, #10 TAB Prov:JOEY CERVANTES. 11/07/18 Insulin Glargine* (Lantus*) 100 Unit/Ml Soln, 1 UNIT SC DAILY, #3 VIAL 1 Refill Prov:JOEY CERVANTES 11/07/18 Medications Current Medications IV Flush (NS 3 ml) 3 ml PER PROTOCOL IV ; Start 11/21/18 at 20:30 Ondansetron HCl (Zofran Inj) 4 mg Q6H PRN IV NAUSEA/VOMITING Last administered on 11/24/18at 12:40; Admin Dose 4 MG; Start 11/21/18 at 20:30 Acetaminophen (Tylenol Tab) 650 mg Q6H PRN PO .PAIN 1-3 OR TEMP; Start 11/21/18 at 20:30 Acetaminophen/ Hydrocodone Bitart ([place] (5/325)) 1 tab Q6H PRN PO .PAIN 4-6; Start 11/21/18 at 20:30 Morphine Sulfate (morphine) 2 mg Q4H PRN IV .PAIN 7-10; Start 11/21/18 at 20:30 Pantoprazole (Protonix Tab) 40 mg BID PO Last administered on 11/25/18at 08:57; Admin Dose 40 MG; Start 11/21/18 at 21:00 Digoxin (Digoxin) 0.125 mg DAILY PO Last administered on 11/25/18 08:57; Admin Dose 0.125 MG; Start 11/22/18 at 09:00 Diagnostic Test (Pha) (Accu-Chek) 1 ea 02 XX ; Start 11/22/18 at 02:00 Insulin Aspart (Novolog Insulin Pen) NOVOLOG *MILD* ALGORITHM WITH MEALS BEDTIME SC Last administered on 11/25/18at 12:31; Admin Dose 2 UNIT; Start 11/21/18 at 21:00 Miscellaneous Information 1 ea NOTE XX ; Start 11/22/18 at 13:30 Glucose (Glutose) 15 gm Q15M PRN PO DECREASED GLUCOSE; Start 11/22/18 at 13:30 Glucose (Glutose) 22.5 gm Q15M PRN PO DECREASED GLUCOSE; Start 11/22/18 at 13:30 Dextrose (D50w Syringe) 25 ml Q15M PRN IV DECREASED GLUCOSE Last administered on 11/23/18at 14:17; Admin Dose 25 ML; Start 11/22/18 at 13:30 Dextrose (D50w Syringe) 50 ml Q15M PRN IV DECREASED GLUCOSE; Start 11/22/18 at 13:30 Glucagon (Glucagen) 1 mg Q15M PRN IM DECREASED GLUCOSE; Start 11/22/18 at 13:30 Glucose (Glutose) 15 gm Q15M PRN BUCCAL DECREASED GLUCOSE Last administered on 11/23/18at 13:33; Admin Dose 15 GM; Start 11/22/18 at 13:30 Insulin Aspart (Novolog Insulin Pen) 3 unit WITH MEALS SC Last administered on 11/25/18at 12:32; Admin Dose 3 UNIT; Start 11/22/18 at 13:30 Insulin Glargine (Lantus) 13 units QHS SC Last administered on 11/24/18at 20:35; Admin Dose 13 UNITS; Start 11/23/18 at 21:00 Lisinopril (Zestril) 2.5 mg DAILY PO ; Start 11/24/18 at 09:00 Allergies: Coded Allergies: No Known Allergy (Unverified , 11/21/18) Past Surgical History Past Surgical Hx: no surgical history, other Family History Significant Family History: no pertinent family hx Social History Alcohol Use: none Smoking Status: Never smoker Drug Use: none Exam/Review of Systems Exam Vitals Vital Signs Date Temp Pulse Resp B/P (MAP) Pulse Ox O2 O2 Flow FiO2 Time Delivery Rate 11/25/18 98.8 85 17 108/64 98 07:42 (79) 11/25/18 Room Air 02:51 Intake and Output 11/24/18 11/24/18 11/25/18 1515:00 23:00 07:00 IntakeIntake Total 840 ml 360 ml 240 ml OutputOutput Total 1100 ml 350 ml 300 ml BalanceBalance -260 ml 10 ml -60 ml Constitutional: alert, oriented Psych: no complaints, anxiety Eyes: nl conjunctiva ENMT: nl external ears & nose Neck: supple Cardiovascular: regular rate and rhythm Gastrointestinal: soft Musculoskeletal: nl extremities to inspection Extremities: normal pulses Results Result Diagram: 11/22/18 0448 11/24/18 0752 Results 24hrs Laboratory Tests Test 11/24/18 17:33 11/24/18 20:32 11/25/18 08:52 11/25/18 09:09 Bedside Glucose 72 98 61 L 75 Test 11/25/18 09:27 11/25/18 12:29 Bedside Glucose 95 192 Medications Medication Current Medications IV Flush (NS 3 ml) 3 ml PER PROTOCOL IV ; Start 11/21/18 at 20:30 Ondansetron HCl (Zofran Inj) 4 mg Q6H PRN IV NAUSEA/VOMITING Last administered on 11/24/18at 12:40; Admin Dose 4 MG; Start 11/21/18 at 20:30 Acetaminophen (Tylenol Tab) 650 mg Q6H PRN PO .PAIN 1-3 OR TEMP; Start 11/21/18 at 20:30 Acetaminophen/ Hydrocodone Bitart ([place] (5/325)) 1 tab Q6H PRN PO .PAIN 4-6; Start 11/21/18 at 20:30 Morphine Sulfate (morphine) 2 mg Q4H PRN IV .PAIN 7-10; Start 11/21/18 at 20:30 Pantoprazole (Protonix Tab) 40 mg BID PO Last administered on 11/25/18at 08:57; Admin Dose 40 MG; Start 11/21/18 at 21:00 Digoxin (Digoxin) 0.125 mg DAILY PO Last administered on 11/25/18at 08:57; Admin Dose 0.125 MG; Start 11/22/18 at 09:00 Diagnostic Test (Pha) (Accu-Chek) 1 ea 02 XX ; Start 11/22/18 at 02:00 Insulin Aspart (Novolog Insulin Pen) NOVOLOG *MILD* ALGORITHM WITH MEALS BEDTIME SC Last administered on 11/25/18at 12:31; Admin Dose 2 UNIT; Start 11/21/18 at 21:00 Miscellaneous Information 1 ea NOTE XX ; Start 11/22/18 at 13:30 Glucose (Glutose) 15 gm Q15M PRN PO DECREASED GLUCOSE; Start 11/22/18 at 13:30 Glucose (Glutose) 22.5 gm Q15M PRN PO DECREASED GLUCOSE; Start 11/22/18 at 13:30 Dextrose (D50w Syringe) 25 ml Q15M PRN IV DECREASED GLUCOSE Last administered on 11/23/18at 14:17; Admin Dose 25 ML; Start 11/22/18 at 13:30 Dextrose (D50w Syringe) 50 ml Q15M PRN IV DECREASED GLUCOSE; Start 11/22/18 at 13:30 Glucagon (Glucagen) 1 mg Q15M PRN IM DECREASED GLUCOSE; Start 11/22/18 at 13:30 Glucose (Glutose) 15 gm Q15M PRN BUCCAL DECREASED GLUCOSE Last administered on 11/23/18at 13:33; Admin Dose 15 GM; Start 11/22/18 at 13:30 Insulin Aspart (Novolog Insulin Pen) 3 unit WITH MEALS SC Last administered on 11/25/18at 12:32; Admin Dose 3 UNIT; Start 11/22/18 at 13:30 Insulin Glargine (Lantus) 13 units QHS SC Last administered on 11/24/18at 20:35; Admin Dose 13 UNITS; Start 11/23/18 at 21:00 Lisinopril (Zestril) 2.5 mg DAILY PO ; Start 11/24/18 at 09:00 DAYANARA HAWTHORNE M.D. Nov 25, 2018 14:10
== END 2018-11-25 14:45 | disposition home or self-care (01) | DRG 699 ==
LOC: E/R 16:11 → MS1 18:28
PROVIDERS: ADMIT Internal Medicine; ATTEND Internal Medicine
DX: E11.21 Type 2 diabetes mellitus with diabetic nephropathy (principal); E87.1 Hypo-osmolality and hyponatremia; C16.9 Malignant neoplasm of stomach, unspecified; R80.9 Proteinuria, unspecified; I48.91 Unspecified atrial fibrillation; E78.5 Hyperlipidemia, unspecified; E04.1 Nontoxic single thyroid nodule; D64.9 Anemia, unspecified; Z79.01 Long term (current) use of anticoagulants
CPT/HCPCS: 36415; 71045; 76775; 80048; 80053; 81001; 81003; 82043; 82570; 82962; 83735; 83880; 84100; 84155; 84156; 84165; 84166; 84300; 85025; 86320; 86325; 93005; 93970; J1642; J1815; J1940; J2405